=== PATIENT | female | born 1990 | race Caucasian/White ===

== ENCOUNTER 2017-11-01 04:45 | Inpatient (IN) | payer OTHER ==
[2017-11-01 05:49] LABS: ADD MAN DIFF? NO
[2017-11-01 05:52] LABS: WHITE BLOOD COUNT 13.6 10^3/ul (4.8-10.8)
[2017-11-01 05:52] LABS: BASOPHILS % 0.1 % (0.0-2.0); EOSINOPHILS % 0.3 % (0.0-7.0); HEMATOCRIT 32.5 % (37.0-47.0); HEMOGLOBIN 10.8 g/dl (12.0-16.0); LYMPHOCYTES # 0.9 10^3/ul (0.8-2.9); LYMPHOCYTES % 6.9 % (15.0-51.0); MEAN CORPUSCULAR HEMOGLOBIN 30.8 pg (29.0-33.0); MEAN CORPUSCULAR HGB CONC 33.2 g/dl (32.0-37.0); MEAN CORPUSCULAR VOLUME 92.6 fl (82.0-101.0); MEAN PLATELET VOLUME 11.8 fl (7.4-10.4); MONOCYTE # 0.7 10^3/ul (0.3-0.9); MONOCYTES % 5.3 % (0.0-11.0); NEUTROPHIL # 11.8 10^3/ul (1.6-7.5); NEUTROPHILS % 86.8 % (39.0-77.0); PLATELET COUNT 203 10^3/UL (140-415); RED BLOOD COUNT 3.51 10^6/ul (4.20-5.40); RED CELL DISTRIBUTION WIDTH 13.8 % (11.5-14.5)
[2017-11-01 05:53] LABS: INR 0.97
[2017-11-01 05:54] LABS: PARTIAL THROMBOPLASTIN TIME 29.1 Sec (25.0-35.0)
[2017-11-01] MEDS ORDERED: MISOPROSTOL 200 MCG TAB PR ×2 (06:00→08:00)
[2017-11-01] MEDS ORDERED: METHYLERGONOVINE 0.2 MG INJ IM (06:00)
[2017-11-01] MEDS ORDERED: AMPICILLIN 2 GM/NS (PMX) 100 ML IV (06:00)
[2017-11-01] MEDS ORDERED: OXYTOCIN 30 UNITS/LR 500 ML IV (06:00)
[2017-11-01] MEDS ORDERED: CARBOPROST 250 MCG INJ IM (06:00)
[2017-11-01] MEDS: LACTATED RINGER'S 1,000 ML IV ×5 (06:19→16:20)
[2017-11-01 06:35] LABS: HEPATITIS B SURFACE ANTIGEN NEGATIVE (NEGATIVE)
[2017-11-01] MEDS ORDERED: morphine SULFATE/PF (10 MG/10 ML) INJ (07:21)
[2017-11-01] MEDS ORDERED: FENTAnyl 50 MCG/ML VIAL (07:22)
[2017-11-01] MEDS ORDERED: BUPIVACAINE 0.75%/DEXT (SPINAL) 2 ML INJ (07:41)
[2017-11-01] MEDS ORDERED: PHENYLephrine (100 MCG/ML) 5ML SYG (07:57)
[2017-11-01] MEDS ORDERED: OXYCODONE/ACETAMINOPHEN (5/325) TAB PO ×2 (08:00)
[2017-11-01] MEDS ORDERED: NA PHOSPHATE/BIPHOS 133 ML ENEMA PR (08:00)
[2017-11-01] MEDS ORDERED: DEXAMETHASONE 4 MG/ML 1 ML INJ (08:10)
[2017-11-01] MEDS: CEFAZOLIN 2 GM/50 ML (PMX) 50 ML IV (08:15)
[2017-11-01] MEDS ORDERED: ONDANSETRON 4 MG INJ (08:42)
[2017-11-01] MEDS ORDERED: ONDANSETRON 4 MG INJ IV (09:00)
[2017-11-01] MEDS ORDERED: ZOLPIDEM 5 MG TAB PO (09:00)
[2017-11-01] MEDS ORDERED: morphine 2 MG INJ IV (09:00)
[2017-11-01] MEDS ORDERED: NALOXONE (0.4 MG/ML) INJ IV (09:00)
[2017-11-01] MEDS: OXYTOCIN 30 UNITS/LR 500 ML IV ×2 (09:44→11:23)
[2017-11-01] MEDS: morphine 2 MG INJ IV (10:40)
[2017-11-01] MEDS: DIPHENHYDRAMINE 50 MG INJ IV (11:58)
[2017-11-01] MEDS: SENNA/DOCUSATE NA (8.6MG/50MG) TAB PO ×2 (14:15→21:33)
[2017-11-01] MEDS: LANOLIN 7 GM TUBE TOP (21:33)
[2017-11-01 22:28] LABS: RAPID PLASMA REAGIN NONREACTIVE (NR)
[2017-11-01] MEDS: KETOROLAC 30 MG INJ IV (23:11)
[2017-11-02] MEDS: LACTATED RINGER'S 1,000 ML IV (00:16)
[2017-11-02] MEDS: KETOROLAC 30 MG INJ IV (07:11)
[2017-11-02] MEDS: IBUPROFEN 600 MG TAB PO ×4 (07:22→23:43)
[2017-11-02] MEDS: SENNA/DOCUSATE NA (8.6MG/50MG) TAB PO ×2 (08:11→21:06)
[2017-11-02 11:23] LABS: ADD MAN DIFF? NO
[2017-11-02 11:29] LABS: WHITE BLOOD COUNT 9.1 10^3/ul (4.8-10.8)
[2017-11-02 11:29] LABS: BASOPHILS % 0.1 % (0.0-2.0); EOSINOPHILS % 0.1 % (0.0-7.0); HEMATOCRIT 29.9 % (37.0-47.0); HEMOGLOBIN 9.7 g/dl (12.0-16.0); LYMPHOCYTES # 0.8 10^3/ul (0.8-2.9); LYMPHOCYTES % 8.6 % (15.0-51.0); MEAN CORPUSCULAR HEMOGLOBIN 30.7 pg (29.0-33.0); MEAN CORPUSCULAR HGB CONC 32.4 g/dl (32.0-37.0); MEAN CORPUSCULAR VOLUME 94.6 fl (82.0-101.0); MEAN PLATELET VOLUME 11.1 fl (7.4-10.4); MONOCYTE # 0.5 10^3/ul (0.3-0.9); MONOCYTES % 5.1 % (0.0-11.0); NEUTROPHIL # 7.8 10^3/ul (1.6-7.5); NEUTROPHILS % 85.7 % (39.0-77.0); PLATELET COUNT 187 10^3/UL (140-415); RED BLOOD COUNT 3.16 10^6/ul (4.20-5.40); RED CELL DISTRIBUTION WIDTH 13.8 % (11.5-14.5)
[2017-11-03] MEDS: IBUPROFEN 600 MG TAB PO ×4 (06:24→23:53)
[2017-11-03] MEDS: SENNA/DOCUSATE NA (8.6MG/50MG) TAB PO ×2 (11:24→20:43)
[2017-11-04] MEDS: IBUPROFEN 600 MG TAB PO (05:49)
[2017-11-04] MEDS: SENNA/DOCUSATE NA (8.6MG/50MG) TAB PO (08:17)
[2017-11-04] MEDS: DIPHTH/TET/ACEL PERTUSS (ADULT) 0.5 ML VIAL IM* (10:22)
[2017-11-04] MEDS: MEASLES,MUMPS,RUBELLA VACCINE INJ SC* (11:11)
== END 2017-11-04 13:20 | disposition home or self-care (01) | DRG 765 ==
LOC: L-D 04:45 → PP1 13:05
PROVIDERS: Specialist
PROC: 10D00Z1 Extraction of Products of Conception, Low, Open Approach (ICD-10-PCS; principal; 2017-11-01 07:30)
PROC: 0UB70ZZ Excision of Bilateral Fallopian Tubes, Open Approach (ICD-10-PCS; 2017-11-01 07:30)
PROC: 4A1HXCZ Monitoring of Products of Conception, Cardiac Rate, External Approach (ICD-10-PCS; 2017-11-01 07:30)
DX: O34.219 Maternal care for unspecified type scar from previous cesarean delivery (principal); Z68.41 Body mass index [BMI] 40.0-44.9, adult; O99.214 Obesity complicating childbirth; E66.9 Obesity, unspecified; Z3A.39 39 weeks gestation of pregnancy; Z37.0 Single live birth; Z30.2 Encounter for sterilization
CPT/HCPCS: 85025; 85610; 85730; 86592; 86850; 86900; 86901; 87340; 88302; 94760; 99464